=== PATIENT | female | born 1990 | race Caucasian/White ===

== ENCOUNTER 2018-05-19 18:13 | Emergency (ER) | payer SELFPAY ==
[2018-05-19] MEDS ORDERED: NA CHLORIDE 0.9% 1,000 ML ONE (19:14)
[2018-05-19] MEDS ORDERED: FAMOTIDINE 20 MG/2 ML VIAL IV ONE (19:14)
[2018-05-19] MEDS ORDERED: ONDANSETRON 4 MG/2 ML VIAL ONE (19:14)
[2018-05-19 19:35] LABS: Urine Blood NEGATIVE (NEG); Urine Glucose NEGATIVE (NEG); Urine Protein NEGATIVE (NEG)
[2018-05-19 19:38] LABS: ALT/SGPT 24 U/L (12-78); AST/SGOT 15 U/L (15-37); Albumin 3.7 g/dL (3.4-5.0); Alkaline Phosphatase 60 U/L (45-117); BUN Blood Urea Nitrogen 7 mg/dL (7-18); Bicarbonate 30 mmol/L (21-32); Bilirubin Direct 0.2 mg/dL (0-0.2); Bilirubin Total 0.5 mg/dL (0.2-1.0); Glucose Level 97 mg/dL (74-106); Lipase 117 U/L (73-393); Potassium 3.9 mmol/L (3.5-5.1); Protein, Total 7.7 g/dL (6.4-8.2); Sodium Level 140 mmol/L (136-145)
[2018-05-19 20:10] LABS: Absolute Lymphocytes (CBC) 2.3 K/uL (0.7-4.9); Absolute Monocytes 0.7 K/uL (0.1-1.3); Absolute Neutrophil 11.9 K/uL (1.8-8.0); Basophils % 0.3 % (0-1.3); Eosinophils % 8.9 % (0-4.4); Hematocrit 39.6 % (36.0-45.0); Lymphocytes % 14.1 % (15.3-44.8); MCH 30.6 pg (27.0-35.0); MCV 90.6 fL (80-100); MPV 7.2 fL (7.6-11.3); RBC Red Blood Cell Count 4.37 M/uL (3.86-4.86)
--- NOTE | 2018-05-19 20:12 | RAD REPORT ---
EXAM DESCRIPTION: US - Abdomen Exam Limited - 05/19/2018 7:57 pm CLINICAL HISTORY: RUQ abdomen pain COMPARISON: No comparisons FINDINGS: The gallbladder demonstrates no gallstones. No pericholecystic fluid or gallbladder wall t hickening. The common bile duct is normal measuring 3 mm. The liver demonstrates no findings of intrahepatic biliary dilatation. IMPRESSION: Unremarkable examination.
--- NOTE | 2018-05-19 21:43 | RAD REPORT ---
EXAM DESCRIPTION: CTAbdomen Pelvis W Contrast - 05/19/2018 9:14 pm CLINICAL HISTORY: Abdominal pain. ABD PAIN COMPARISON: Abdomen Exam Limited dated 05/19/2018 TECHNIQUE: Biphasic CT imaging of the abdomen and pelvis was performed with 100 ml non-ionic IV cont rast. All CT scans are performed using dose optimization technique as appropriate and may include automated exposure control or mA/KV adjustment according to patient size. FINDINGS: The lung bases are clear. The liver, spleen, pancreas, adrenal glands and kidneys are within normal limits. No bowel obstruction, free air, free fluid or abscess. The appendix is normal. No evidence of signi ficant lymphadenopathy. No suspicious bony findings. IMPRESSION: No acute intra-abdominal or pelvic finding.
[2018-05-19] MEDS ORDERED: LIDOCAINE VISCOUS 2% SOLN 15 ML UDC ONE (22:01)
[2018-05-19] MEDS ORDERED: MAGNE/ALUM HYDROXD 30 ML UCUP ONE (22:01)
--- NOTE | 2018-05-19 23:35 | ER ---
Nurse's Notes [facility] Name: Mare Tavarez Age: 28 yrs Sex: Female : 1990 Arrival Date: 05/19/2018 Time: 18:15 Bed 20 Private MD: Diagnosis: Upper abdominal pain, unspecified Presentation: 05/19 18:24 Presenting complaint: Patient states: Upper abdominal pain since last night. Reports aj1 feeling bloated, she took Gas X but it didn't help. She tried some magnesium citrate, but immediately threw it up. Reports N/V. Denies diarrhea. Denies fever. Transition of care: patient was not received from another setting of care. Onset of symptoms was May 19, 2018. Risk Assessment: Do you want to hurt yourself or someone else? Patient reports no desire to harm self or others. Initial Sepsis Screen: Does the patient meet any 2 criteria? No. Patient's initial sepsis screen is negative. Does the patient have a suspected source of infection? Yes: Acute abdominal pain. Care prior to arrival: None. 18:24 Method Of Arrival: Ambulatory aj1 18:24 Acuity: PÉREZ 3 aj1 Triage Assessment: 18:28 General: Appears in no apparent distress. uncomfortable, Behavior is calm, cooperative, aj1 appropriate for age. Pain: Complains of pain in abdomen Pain currently is 7 out of 10 on a pain scale. Neuro: Level of Consciousness is awake, alert, obeys commands. Cardiovascular: Patient's skin is warm and dry. Respiratory: Airway is patent Respiratory effort is even, unlabored, Respiratory pattern is regular, symmetrical. GI: Reports upper abdominal pain, nausea, vomiting, Patient currently denies diarrhea. 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 - Social history:: Smoking status: Patient/guardian denies using tobacco. - Ebola Screening: : Patient denies travel to an Ebola-affected area in the 21 days before illness onset. Screenin:35 Abuse screen: Denies threats or abuse. Denies injuries from another. Nutritional tl1 screening: No deficits noted. Tuberculosis screening: No symptoms or risk factors identified. Fall Risk IV access (20 points). Assessment: 19:15 General: Appears in no apparent distress. Behavior is calm, cooperative, appropriate tl1 for age. Pain: Complains of pain in epigastric area, right upper quadrant and left upper quadrant. Neuro: Level of Consciousness is awake, alert, obeys commands, Oriented to person, place, time, situation. Cardiovascular: Denies chest pain. Respiratory: Airway is patent Trachea midline Respiratory effort is even, unlabored, Breath sounds are clear bilaterally. GI: Bowel sounds present X 4 quads. Abdomen is tender to palpation in right upper quadrant and left upper quadrant Reports upper abdominal pain. : No signs and/or symptoms were reported regarding the genitourinary system. EENT: No signs and/or symptoms were reported regarding the EENT system. Derm: No signs and/or symptoms reported regarding the dermatologic system. 22:34 Reassessment: Patient and/or family updated on plan of care and expected duration. Pain tl1 level reassessed. Patient is alert, oriented x 3, equal unlabored respirations, skin warm/dry/pink. Patient denies pain at this time. Patient states feeling better. Patient states symptoms have improved. Vital Signs: 18:28 BP 143 / 101; Pulse 82; Resp 18; Temp 97.4; Pulse Ox 100% on R/A; Weight 77.11 kg (R); aj1 Height 5 ft. 1 in. (154.94 cm) (R); Pain 7/10; 19:30 BP 121 / 74; Pulse 67; Resp 18; Pulse Ox 100% on R/A; oe 20:30 BP 118 / 66; Pulse 72; Resp 18; Pulse Ox 98% on R/A; oe 21:30 BP 115 / 99; Pulse 76; Resp 18; Pulse Ox 98% on R/A; oe 22:36 BP 121 / 87; Pulse 69; Resp 16; Temp 97.8; Pulse Ox 100% ; Pain 0/10; tl1 18:28 Body Mass Index 32.12 (77.11 kg, 154.94 cm) aj1 ED Course: 18:15 Patient arrived in ED. as 18:27 Triage completed. aj1 18:28 Arm band placed on Patient placed in an exam room. aj1 18:32 [facility]. cp 18:32 Tan Mott MD is Attending Physician. cp 19:25 Missed attempt(s): 20 gauge Bleeding controlled, band aid applied, catheter tip intact. oe 19:30 Patient has correct armband on for positive identification. Placed in gown. Bed in low tl1 position. Call light in reach. Side rails up X 1. Adult w/ patient. 19:30 No provider procedures requiring assistance completed. Inserted saline lock: 20 gauge tl1 in left antecubital area, using aseptic technique. Blood collected. 19:45 Deepti Sanchez, RN is Primary Nurse. tl1 19:58 US Abdomen Limited: RUQ/epigastric area In Process Unspecified. EDMS 21:[address] nj 21:13 CT completed. Patient tolerated procedure well. Patient moved back from CT. vm2 21:15 CT Abd/Pelvis - W/Contrast: upper abdominal pain In Process Unspecified. EDMS 22:19 Freddy Lyn MD is Referral Physician. cp 22:35 IV discontinued, intact, bleeding controlled, No redness/swelling at site. Pressure tl1 dressing applied. Administered Medications: 19:15 Drug: Pepcid 20 mg Route: IVP; Infused Over: 2 mins; Site: left antecubital; tl1 22:33 Follow up: Response: No adverse reaction; Marked relief of symptoms tl1 19:15 Drug: NS 0.9% 1000 ml Route: IV; Rate: 1 bolus; Site: left antecubital; tl1 20:30 Follow up: IV Status: Completed infusion tl1 19:16 Drug: Zofran 4 mg Route: IVP; Infused Over: 2 mins; Site: left antecubital; tl1 22:33 Follow up: Response: No adverse reaction; Marked relief of symptoms tl1 21:57 Drug: GI Cocktail without - (Maalox Suspension 30 ml, Lidocaine Liquid 2 % 15 tl1 ml) Route: PO; 22:32 Follow up: Response: No adverse reaction; Marked relief of symptoms; Pain is decreased tl1 Outcome: 22:19 Discharge ordered by . cp 22:35 Discharged to home ambulatory, with family. tl1 22:35 Condition: good 22:35 Discharge instructions given to patient, family, Instructed on discharge instructions, follow up and referral plans. medication usage, Demonstrated understanding of instructions, follow-up care, medications, Prescriptions given X 2. 22:37 Patient left the ED. tl1 Signatures: Dispatcher [employer] EDJessica Espinal, RN RN aj1 Vandana Cortez Tonya RN RN tl1 Jeremy Dai PA PA cp Jordan, Nathan nj Espinosa, Orlando oe McGuire, Victoria 2 Corrections: (The following items were deleted from the chart) 19:26 19:23 Missed attempt(s): 20 gauge in right antecubital area. Bleeding controlled, band oe aid applied, catheter tip intact. oe
--- NOTE | 2018-05-19 23:35 | EDPHYS ---
Physician Documentation [facility] Name: Mare Tavarez Age: 28 yrs Sex: Female : 1990 Arrival Date: 05/19/2018 Time: 18:15 Bed 20 Private MD: ED Physician Tan Mott HPI: 05/19 19:10 This 28 yrs old Female presents to ER via Ambulatory with complaints of cp Abdominal Pain. 19:10 The patient presents with abdominal pain in the upper abdomen, in the right upper cp quadrant. Onset: The symptoms/episode began/occurred yesterday. The symptoms do not radiate. Associated signs and symptoms: Pertinent positives: vomiting, Pertinent negatives: blood in stools, chest pain, constipation, diarrhea, dysuria, fever, headache, palpitations, shortness of breath, vaginal discharge. Modifying factors: the symptoms are aggravated by food, pressure. Severity of pain: in the emergency department the pain is unchanged despite home interventions. 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 - Social history:: Smoking status: Patient/guardian denies using tobacco. - Ebola Screening: : Patient denies travel to an Ebola-affected area in the 21 days before illness onset. ROS: 19:25 Constitutional: Negative for body aches, chills, fever, poor PO intake. cp 19:25 Eyes: Negative for injury, pain, redness, and discharge. cp 19:25 ENT: Negative for drainage from ear(s), ear pain, sore throat, difficulty swallowing, difficulty handling secretions. 19:25 Cardiovascular: Negative for chest pain, edema, palpitations. 19:25 Respiratory: Negative for cough, shortness of breath, wheezing. 19:25 Abdomen/GI: Positive for abdominal pain, nausea, vomiting, anorexia, of the epigastric area and right upper quadrant, Negative for diarrhea, constipation, dysphagia, hematemesis, black/tarry stool, rectal bleeding. 19:25 Back: Negative for injury or acute deformity, decreased range of motion. 19:25 : Negative for urinary symptoms. 19:25 Skin: Negative for cellulitis, rash. 19:25 Neuro: Negative for altered mental status, headache, weakness. 19:25 All other systems are negative. Exam: 19:30 Constitutional: The patient appears in no acute distress, alert, awake, cp non-diaphoretic, non-toxic, well developed, well nourished. 19:30 Head/Face: Normocephalic, atraumatic. Eyes: Pupils equal round and reactive to light, cp extra-ocular motions intact. Lids and lashes normal. Conjunctiva and sclera are non-icteric and not injected. Cornea within normal limits. Periorbital areas with no swelling, redness, or edema. ENT: Nares patent. No nasal discharge, no septal abnormalities noted. Tympanic membranes are normal and external auditory canals are clear. Oropharynx with no redness, swelling, or masses, exudates, or evidence of obstruction, uvula midline. Mucous membranes moist. Chest/axilla: Normal chest wall appearance and motion. Nontender with no deformity. No lesions are appreciated. 19:30 Cardiovascular: Rate: normal, Rhythm: regular, Edema: is not appreciated, JVD: is not appreciated. 19:30 Respiratory: the patient does not display signs of respiratory distress, Respirations: normal, no use of accessory muscles, no retractions, no splinting, no tachypnea, labored breathing, Breath sounds: are clear throughout, no decreased breath sounds, no stridor, no wheezing. 19:30 Abdomen/GI: Inspection: abdomen appears normal, Bowel sounds: active, Palpation: soft, in all quadrants, moderate abdominal tenderness, in the epigastric area and right upper quadrant, rebound tenderness, is not appreciated, involuntary guarding, is not appreciated. 19:30 Back: ROM is normal, CVA tenderness, is absent. 19:30 Skin: cellulitis, is not appreciated, no rash present. 19:30 Neuro: Orientation: to person, place \T\ time. Mentation: is normal, Cerebellar function: is grossly normal, Motor: moves all fours, strength is normal, Sensation: is normal. Vital Signs: 18:28 BP 143 / 101; Pulse 82; Resp 18; Temp 97.4; Pulse Ox 100% on R/A; Weight 77.11 kg (R); aj1 Height 5 ft. 1 in. (154.94 cm) (R); Pain 7/10; 19:30 BP 121 / 74; Pulse 67; Resp 18; Pulse Ox 100% on R/A; oe 20:30 BP 118 / 66; Pulse 72; Resp 18; Pulse Ox 98% on R/A; oe 21:30 BP 115 / 99; Pulse 76; Resp 18; Pulse Ox 98% on R/A; oe 22:36 BP 121 / 87; Pulse 69; Resp 16; Temp 97.8; Pulse Ox 100% ; Pain 0/10; tl1 18:28 Body Mass Index 32.12 (77.11 kg, 154.94 cm) aj1 MDM: 18:32 Patient medically screened. cp 19:30 Differential diagnosis: cholecystitis, Cholelithiasis, gastritis, pancreatitis, Peptic cp Ulcer Disease, Perf. Duodenal Ulcer, Perf. Gastric Ulcer, Pyelonephritis, Ureterolithiasis, urinary tract infection. 22:15 Data reviewed: vital signs, nurses notes, lab test result(s), radiologic studies, CT cp scan, ultrasound. 22:15 Counseling: I had a detailed discussion with the patient and/or guardian regarding: the cp historical points, exam findings, and any diagnostic results supporting the discharge/admit diagnosis, lab results, radiology results, the need for outpatient follow up, a health and safety trainer, to return to the emergency department if symptoms worsen or persist or if there are any questions or concerns that arise at home. Response to treatment: the patient's symptoms have markedly improved after treatment. 22:15 ED course: VSS. Nausea and pain markedly improved after meds. No vomiting observed. cp Will discharge to home for continued monitoring. 05/19 19:05 Order name: Basic Metabolic Panel cp 05/19 19:05 Order name: CBC with Diff cp 05/19 19:05 Order name: Creatinine for Radiology cp 05/19 19:05 Order name: Hepatic Function cp 05/19 19:05 Order name: Lipase cp 05/19 19:05 Order name: Basic Metabolic Panel; Complete Time: 20:39 EDMS 05/19 19:05 Order name: CBC with Automated Diff; Complete Time: 20:39 EDMS 05/19 20:39 Interpretation: Normal except: WBC 16.4; MPV 7.2; LYM% 14.1; EOSINOPHIL % 8.9; NEUT A cp 11.9; EOSA 1.5. 05/19 19:05 Order name: Creatinine (Radiology Only); Complete Time: 20:39 EDMS 05/19 19:05 Order name: Liver (Hepatic) Function; Complete Time: 20:39 EDMS 05/19 21:25 Interpretation: Normal except: GLOB 4.0; A/G 0.9. cp 05/19 19:05 Order name: Lipase; Complete Time: 20:39 EDMS 05/19 19:24 Order name: Urine Dipstick--Ancillary (enter results); Complete Time: 20:39 mt 05/19 21:45 Interpretation: Normal except: UKET 1+. cp 05/19 19:24 Order name: Urine --Ancillary (enter results); Complete Time: 20:39 mt 05/19 19:25 Order name: US Abdomen Limited: RUQ/epigastric area; Complete Time: 20:39 cp 05/19 20:40 Order name: CT Abd/Pelvis - W/Contrast: upper abdominal pain; Complete Time: 21:45 cp 05/19 19:05 Order name: IV Saline Lock; Complete Time: 19:16 cp 05/19 19:05 Order name: Labs collected and sent; Complete Time: 19:16 cp 05/19 19:05 Order name: Urine Dipstick-Ancillary (obtain specimen); Complete Time: 19:16 cp 05/19 19:05 Order name: Urine Test (obtain specimen); Complete Time: 19:16 cp 05/19 19:25 Order name: NPO; Complete Time: 19:45 cp 05/19 21:45 Order name: PO challenge; Complete Time: 22:32 cp Administered Medications: 19:15 Drug: Pepcid 20 mg Route: IVP; Infused Over: 2 mins; Site: left antecubital; tl1 22:33 Follow up: Response: No adverse reaction; Marked relief of symptoms tl1 19:15 Drug: NS 0.9% 1000 ml Route: IV; Rate: 1 bolus; Site: left antecubital; tl1 20:30 Follow up: IV Status: Completed infusion tl1 19:16 Drug: Zofran 4 mg Route: IVP; Infused Over: 2 mins; Site: left antecubital; tl1 22:33 Follow up: Response: No adverse reaction; Marked relief of symptoms tl1 21:57 Drug: GI Cocktail without - (Maalox Suspension 30 ml, Lidocaine Liquid 2 % 15 tl1 ml) Route: PO; 22:32 Follow up: Response: No adverse reaction; Marked relief of symptoms; Pain is decreased tl1 Disposition: 05/20 02:03 Co-signature as Attending Physician, Tan Mott MD Available for consultation at ps1 all times. . Disposition: 05/19/18 22:19 Discharged to Home. Impression: Upper abdominal pain, unspecified. - Condition is Stable. - Discharge Instructions: Abdominal Pain, Adult, Gastroesophageal Reflux Disease, Adult. - Prescriptions for Protonix 40 mg Oral Tablet - take 1 tablet by ORAL route once daily; 30 tablet. Zofran 4 mg Oral Tablet - take 1 tablet by ORAL route every 12 hours As needed; 20 tablet. - Medication Reconciliation Form, Thank You Letter, Antibiotic Education, Prescription Opioid Use form. - Follow up: Freddy Lyn MD; When: 1 - 2 days; Reason: Recheck today's complaints. - Problem is new. - Symptoms have improved. Signatures: Dispatcher [employer] EDMS Jessica León RN RN aj1 Deepti Sanchez RN RN tl1 Jeremy Dai PA PA Tan Monroe MD MD ps1 Corrections: (The following items were deleted from the chart) 05/19 20:39 20:39 Normal except: WBC 16.4; MPV 7.2; LYM% 14.1; EOSINOPHIL % 8.9; NEUT A 11.9. cp cp 22:37 22:19 05/19/2018 22:19 Discharged to Home. Impression: Upper abdominal pain, tl1 unspecified. Condition is Stable. Forms are Medication Reconciliation Form, Thank You Letter, Antibiotic Education, Prescription Opioid Use. Follow up: Ferddy Lyn; When: 1 - 2 days; Reason: Recheck today's complaints. Problem is new. Symptoms have improved. cp
== END 2018-05-19 22:37 | disposition home or self-care (01) ==
LOC: ER 18:13
DX: R10.9 Unspecified abdominal pain (principal); R11.10 Vomiting, unspecified
CPT/HCPCS: 36415; 74177; 76705; 80048; 80076; 81003; 81025; 83690; 85025; J2405; J7030; Q9967